=== PATIENT | female | born 1970 | race Caucasian/White ===

== ENCOUNTER → 2017-02-11 | Outpatient (CLI) | payer BC ==
[~2017-02-11] MED LIST: AMBIEN CR 12.12.5 MG PO; ANTIVERT 25MG25 MG PO; EFFEXOR 3737.5 MG/TA PO; EFFEXOR-XR150 MG PO; KLONOPIN 1MG1 MG PO; LAMICTAL200 MG PO; PHENERGAN 25 TA25 MG PO; PRILOSEC 20MG20 MG PO; SEROQUEL50 MG PO; VALIUM 5MG T5 MG/TAB PO; VRAYLAR4.5 MG PO; ZOFRAN ODT4 MG PO
== END ==
LOC: BHSO 13:44
DX: F31.73 Bipolar disorder, in partial remission, most recent episode manic (principal)

== ENCOUNTER 2017-04-29 15:49 | Emergency (ER) | payer BC ==
[~2017-04-29] VITALS: Ht 172.7 cm; Wt 90.9 kg
[~2017-04-29 15:49] MED LIST changes: -ANTIVERT 25MG25 MG PO; -EFFEXOR-XR150 MG PO; -KLONOPIN 1MG1 MG PO; -LAMICTAL200 MG PO; -PHENERGAN 25 TA25 MG PO; -PRILOSEC 20MG20 MG PO; -SEROQUEL50 MG PO; -VALIUM 5MG T5 MG/TAB PO; -VRAYLAR4.5 MG PO; -ZOFRAN ODT4 MG PO
[2017-04-29 15:50] VITALS: TEMP 98
[2017-04-29] MEDS ORDERED: EFFEXOR-XR150 MG PO (16:13)
[2017-04-29] MEDS ORDERED: LAMICTAL200 MG PO (16:21)
[2017-04-29] MEDS ORDERED: SEROQUEL50 MG PO (16:22)
[2017-04-29] MEDS ORDERED: KLONOPIN 1MG1 MG PO (16:22)
[2017-04-29] MEDS ORDERED: PRILOSEC 20MG20 MG PO (16:22)
[2017-04-29] MEDS ORDERED: VRAYLAR4.5 MG PO (16:23)
[2017-04-29 18:13] LABS: BASO % 0.3 % (0.0-2.0); EOS % 0.1 % (0-4.0); GRAN % 88.7 % (42.2-75.2); HEMATOCRIT 38.4 % (37.0-47.0); HEMOGLOBIN 12.6 g/dl (12.5-16.0); LYMPH # 0.7 (1.2-3.4); LYMPH % 5.6 % (20.0-51.0); MEAN CELL VOLUME 83 fl (80.0-100.0); MEAN CORPUSCULAR HEMOGLOBIN 27 pg (27.0-31.0); MEAN CORPUSCULAR HGB CONC 33 g/dl (33.0-37.0); MEAN PLATELET VOLUME 9.3 fl (7.4-10.4); MONO # 0.6 (0.1-0.6); PLATELET COUNT 376 K/mm3 (130-400); RED BLOOD COUNT 4.61 M/mm3 (4.10-5.30); REDCELL DISTRIBUTION WIDTH-CV 14.6 % (11.5-14.5); WHITE BLOOD COUNT 12.4 K/mm3 (4.8-10.8)
[2017-04-29 18:19] LABS: ALANINE AMINOTRANSFERASE 20 U/L (9-52); ALBUMIN 4.4 gm/dL (3.5-5.0); ALKALINE PHOSPHATASE 119 U/L (50-136); ANION GAP 11 mmol/L (7-16); BILIRUBIN,TOTAL 0.5 mg/dL (0.0-1.0); BLOOD UREA NITROGEN 16 mg/dL (7-17); CALCIUM 9.3 mg/dL (8.4-10.2); CARBON DIOXIDE 23 mmol/L (22-30); CHLORIDE 104 mmol/L (98-107); CREATININE, serum 0.76 mg/dL (0.52-1.25); GLUCOSE 103 mg/dL (74-106); LIPASE 63 U/L (23-300); POTASSIUM 3.8 mmol/L (3.4-5.0); SODIUM 137 mmol/L (137-145); TOTAL PROTEIN 7.8 gm/dL (6.4-8.2)
[2017-04-29 18:31] LABS: TROPONIN-I < 0.012 ng/mL (0.000-0.034)
[2017-04-29] MEDS ORDERED: ZOFRAN ODT4 MG PO (19:08)
[2017-04-29] MEDS ORDERED: ANTIVERT 25MG25 MG PO (19:08)
[2017-04-29] MEDS ORDERED: VALIUM 5MG T5 MG/TAB PO (19:08)
[2017-04-29] MEDS ORDERED: PHENERGAN 25 TA25 MG PO (19:08)
[2017-04-29 20:07] VITALS: BP 153/89; PULSE 89
== END 2017-04-29 20:07 | disposition home or self-care (01) ==
LOC: COL.ER 15:49
PROVIDERS: Emergency Medicine
DX: R42 Dizziness and giddiness (principal); F32.9 Major depressive disorder, single episode, unspecified
CPT/HCPCS: J2550; J3360; J7030

== ENCOUNTER → 2017-07-21 | Outpatient (CLI) | payer BC ==
[~2017-07-21] MED LIST changes: +ANTIVERT 25MG25 MG PO; +EFFEXOR-XR150 MG PO; +KLONOPIN 1MG1 MG PO; +LAMICTAL200 MG PO; +PHENERGAN 25 TA25 MG PO; +PRILOSEC 20MG20 MG PO; +SEROQUEL50 MG PO; +VALIUM 5MG T5 MG/TAB PO; +VRAYLAR4.5 MG PO; +ZOFRAN ODT4 MG PO
== END ==
LOC: BHSO 14:49
DX: F31.73 Bipolar disorder, in partial remission, most recent episode manic (principal)

== ENCOUNTER → 2017-10-13 | Outpatient (CLI) | payer BC | LOC: BHSO 10:14 | DX: F31.73 Bipolar disorder, in partial remission, most recent episode manic (principal) | CPT/HCPCS: G0463 ==

== ENCOUNTER → 2018-03-27 | Outpatient (CLI) | payer BC | LOC: BHSO 11:11 | DX: F43.10 Post-traumatic stress disorder, unspecified (principal) | CPT/HCPCS: G0463 ==

== ENCOUNTER → 2018-11-17 | Outpatient (CLI) | payer BC | LOC: BHSO 13:41 | DX: F43.10 Post-traumatic stress disorder, unspecified (principal) | CPT/HCPCS: G0463 ==